=== PATIENT | female | born 1960 | race Caucasian/White ===

== ENCOUNTER 2023-04-05 12:53 | Outpatient (CLI) | payer MEDICARE, OTHER, SELFPAY | END 2023-04-05 12:54 | disposition home or self-care (01) | LOC: ANHAUDASC 12:57 | PROVIDERS: PCP Otolaryngology; Visit Provider Otolaryngology | DX: H93.2 Other abnormal auditory perceptions (principal) | CPT/HCPCS: 92557; 92567 ==

== ENCOUNTER 2025-05-05 11:55 | Outpatient (CLI) | payer MEDICARE, SELFPAY ==
--- NOTE | ~2025-05-05 | XR_ITS ---
EXAM/PROCEDURE: XR thoracic spine 3V HISTORY: Fall COMPARISON: None available. TECHNIQUE: Frontal and lateral views of the thoracic spine FINDINGS: No displaced fracture or traumatic malalignment seen. Diffuse osteopenic, degenerative and kyphotic changes throughout the thoracic spine. Multilevel mild anterior wedge deformity is present. Exam somewhat limited especially on the lateral view. Dorsal column stimulating wires extend to the mid and lower thoracic spine. Surgical clips in the right upper quadrant. IMPRESSION: No gross fracture or traumatic malalignment. Reviewed, dictated and finalized at location A. [facility]
== END 2025-05-05 11:56 | disposition home or self-care (01) ==
LOC: MICIMG 11:57
PROVIDERS: PCP Nurse Practitioner Family; Visit Provider Nurse Practitioner Family
DX: M54.6 Pain in thoracic spine (principal); W19.XXXA Unspecified fall, initial encounter
CPT/HCPCS: 72072